=== PATIENT | male | born 1975 | race Caucasian/White ===

== ENCOUNTER 2018-08-21 01:46 | Inpatient (IN) | payer OTHER ==
[~2018-08-21] VITALS: Ht 167.6 cm; Wt 108.6 kg
[~2018-08-21 01:46] MED LIST: ASPIR LOW81 MG PO; BETIMOL5 M1 OU; CLONIDINE HYDR0.3 M1 PO; COLACE100 MG PO; FLO4 PO; HUMI SC; LANTI SQ; LIPI20 PO; NOR10T PO; RAMIPRIL2.5 MG PO; SIMBRINZA8 ML OP; TRAVATAN Z5 ML OU
[2018-08-21 02:01] VITALS: Ht 167.6 cm; Wt 108.6 kg
[2018-08-21 02:57] LABS: BASOPHIL % 0.1 % (0-2); RED CELL DISTRIBUTION WIDTH 13.8 % (11.5-14.5)
[2018-08-21 03:03] LABS: PLATELET COUNT 129 x10^3mcL (130-400)
[2018-08-21 03:15] LABS: ALBUMIN 3.6 g/dL (3.4-5.0); BILIRUBIN TOTAL 0.44 mg/dL (0.20-1.00); CALCIUM 7.8 mg/dL (8.5-10.1); CARBON DIOXIDE 26.6 mmol/L (21-32); FREE T4 0.72 ng/dL (0.76-1.46); POTASSIUM SERUM 3.9 mmol/L (3.5-5.1); TOTAL PROTEIN, SERUM 7.5 g/dL (6.4-8.2)
[2018-08-21 03:16] LABS: CREATININE SERUM 12.6 mg/dL (0.7-1.3)
[2018-08-21] MEDS ORDERED: CRESTOR10 M1 PO (03:48)
[2018-08-21] MEDS ORDERED: ZANTAC 300300 MG PO (03:49)
[2018-08-21] MEDS ORDERED: TRAZODONE50 M1 PO (03:50)
[2018-08-21] MEDS ORDERED: NATURE'S BLEND F1 MG (03:50)
[2018-08-21] MEDS ORDERED: ZOLOFT50 MG PO (03:50)
[2018-08-21] MEDS ORDERED: ATIVAN1 MG PO (03:51)
[2018-08-21] MEDS ORDERED: RENVELA800 M1 PO (03:51)
[2018-08-21] MEDS ORDERED: DICLO GEL1 EACH TP (03:52)
[2018-08-21] MEDS ORDERED: OMEPRAZOLE40 M1 PO (03:53)
[2018-08-21] MEDS ORDERED: CIALIS5 M1 PO (03:53)
[2018-08-21] MEDS ORDERED: PRIMATENE1 TAB PO (03:55)
[2018-08-21 03:59] LABS: MAGNESIUM 2.5 mg/dL (1.8-2.4); PHOSPHOROUS 6.3 mg/dL (2.5-4.9)
[2018-08-21 04:07] LABS: CHOLESTEROL/HDL RATIO 3.3
[2018-08-21 04:57] VITALS: BP 135/65
[2018-08-21 05:20] VITALS: BP 143/88
[2018-08-21 09:52] VITALS: BP 146/77
[2018-08-21 13:09] VITALS: BP 146/77
[2018-08-21] MEDS ORDERED: LEVAQUIN250 M1 PO (14:15)
== END 2018-08-21 15:20 | disposition home or self-care (01) | DRG 280 ==
LOC: ED 01:46 → MU 03:25
PROVIDERS: Emergency Medicine; Family Medicine; ADMIT Internal Medicine
DX: I21.A1 Myocardial infarction type 2 (principal); J09.X1 Influenza due to identified novel influenza A virus with pneumonia; N18.6 End stage renal disease; I12.0 Hypertensive chronic kidney disease with stage 5 chronic kidney disease or end stage renal disease; E11.22 Type 2 diabetes mellitus with diabetic chronic kidney disease; E11.65 Type 2 diabetes mellitus with hyperglycemia; E83.39 Other disorders of phosphorus metabolism; E83.41 Hypermagnesemia; Z89.432 Acquired absence of left foot; Z99.2 Dependence on renal dialysis; Z79.4 Long term (current) use of insulin; Z68.38 Body mass index [BMI] 38.0-38.9, adult; Z87.891 Personal history of nicotine dependence
CPT/HCPCS: 82962; 83880; 84439; 87804; 94150; J2060; J3490; J7620; Q0092; Q0162

== ENCOUNTER 2018-08-24 19:28 | Inpatient (IN) | payer OTHER ==
[~2018-08-24] VITALS: Ht 167.6 cm; Wt 95.3 kg
[~2018-08-24 19:28] MED LIST changes: +ATIVAN1 MG PO; +CIALIS5 M1 PO; +CRESTOR10 M1 PO; +DICLO GEL1 EACH TP; +LEVAQUIN250 M1 PO; +NATURE'S BLEND F1 MG; +OMEPRAZOLE40 M1 PO; +PRIMATENE1 TAB PO; +RENVELA800 M1 PO; +TRAZODONE50 M1 PO; +ZANTAC 300300 MG PO; +ZOLOFT50 MG PO
[2018-08-24 19:34] VITALS: Ht 167.6 cm; Wt 95.3 kg
[2018-08-24 20:38] LABS: BASOPHIL % 0.5 % (0-2); PLATELET COUNT 181 x10^3mcL (130-400)
[2018-08-24 20:44] LABS: RED CELL DISTRIBUTION WIDTH 14.9 % (11.5-14.5)
[2018-08-24 21:04] LABS: ALBUMIN 3.5 g/dL (3.4-5.0); BILIRUBIN TOTAL 0.54 mg/dL (0.20-1.00); CALCIUM 7.9 mg/dL (8.5-10.1); CARBON DIOXIDE 28.9 mmol/L (21-32); MAGNESIUM 2.8 mg/dL (1.8-2.4); PHOSPHOROUS 5.9 mg/dL (2.5-4.9); POTASSIUM SERUM 3.7 mmol/L (3.5-5.1); TOTAL PROTEIN, SERUM 7.8 g/dL (6.4-8.2)
[2018-08-24 21:06] LABS: CREATININE SERUM 14.6 mg/dL (0.7-1.3)
[2018-08-24] MEDS ORDERED: ZANTAC 300300 MG PO (22:15)
[2018-08-24] MEDS ORDERED: NEPHRO-VITE RX1 TAB PO (22:15)
[2018-08-24] MEDS ORDERED: DRISDOL50000 IU PO (22:15)
[2018-08-24] MEDS ORDERED: IMODIUM A-D2 M4 PO (22:16)
[2018-08-24] MEDS ORDERED: VELPHORO500 MG PO (22:16)
[2018-08-24] MEDS ORDERED: VELTASSA8.4 GM PO (22:17)
[2018-08-24] MEDS ORDERED: ZEGERID 40 MG1 EACH PO (22:17)
[2018-08-24] MEDS ORDERED: REGLAN10 M1 PO (22:17)
[2018-08-24] MEDS ORDERED: MP PO (22:18)
[2018-08-25 01:17] VITALS: BP 149/79
[2018-08-25 05:26] VITALS: BP 141/82
[2018-08-25 09:17] LABS: BASOPHIL % 0.4 % (0-2); PLATELET COUNT 162 x10^3mcL (130-400); RED CELL DISTRIBUTION WIDTH 14.2 % (11.5-14.5)
[2018-08-25 09:34] VITALS: BP 146/88
[2018-08-25 09:50] LABS: CALCIUM 7.9 mg/dL (8.5-10.1); CARBON DIOXIDE 25.7 mmol/L (21-32); MAGNESIUM 2.7 mg/dL (1.8-2.4); PHOSPHOROUS 6.7 mg/dL (2.5-4.9); POTASSIUM SERUM 4.1 mmol/L (3.5-5.1)
[2018-08-25 09:54] LABS: CREATININE SERUM 15.1 mg/dL (0.7-1.3)
[2018-08-25 12:06] VITALS: BP 120/60
[2018-08-25] MEDS ORDERED: LEVAQUIN250 M1 PO (15:12)
[2018-08-25 16:20] VITALS: BP 142/68
[2018-08-25 17:22] VITALS: BP 120/60
== END 2018-08-25 17:59 | disposition home or self-care (01) | DRG 193 ==
LOC: ED 19:28 → DU 21:43
PROVIDERS: Emergency Medicine; ADMIT General Practice
DX: J18.9 Pneumonia, unspecified organism (principal); I50.43 Acute on chronic combined systolic (congestive) and diastolic (congestive) heart failure; J96.01 Acute respiratory failure with hypoxia; N18.6 End stage renal disease; I13.2 Hypertensive heart and chronic kidney disease with heart failure and with stage 5 chronic kidney disease, or end stage renal disease; E87.1 Hypo-osmolality and hyponatremia; Z68.41 Body mass index [BMI] 40.0-44.9, adult; E11.22 Type 2 diabetes mellitus with diabetic chronic kidney disease; E11.65 Type 2 diabetes mellitus with hyperglycemia; E83.51 Hypocalcemia; E83.39 Other disorders of phosphorus metabolism; E83.41 Hypermagnesemia; E78.5 Hyperlipidemia, unspecified; D63.1 Anemia in chronic kidney disease; F12.10 Cannabis abuse, uncomplicated; F32.9 Major depressive disorder, single episode, unspecified; Z99.2 Dependence on renal dialysis; Z79.4 Long term (current) use of insulin; Z87.891 Personal history of nicotine dependence
CPT/HCPCS: 36600; 82962; 83880; 87804; J1956; J2060; J2270; J2405; J2543; J3370; J7040; J7050; Q0092

== ENCOUNTER 2018-10-08 20:39 | Emergency (ER) | payer OTHER ==
[~2018-10-08] VITALS: Ht 167.6 cm; Wt 117.5 kg
[~2018-10-08 20:39] MED LIST changes: +DRISDOL50000 IU PO; +IMODIUM A-D2 M4 PO; +MP PO; +NEPHRO-VITE RX1 TAB PO; +REGLAN10 M1 PO; +VELPHORO500 MG PO; +VELTASSA8.4 GM PO; +ZEGERID 40 MG1 EACH PO
[2018-10-08 20:55] VITALS: Ht 167.6 cm; Wt 117.5 kg
[2018-10-08 23:11] VITALS: BP 153/87
== END 2018-10-08 23:11 | disposition home or self-care (01) ==
LOC: ED 20:39
DX: S83.92XA Sprain of unspecified site of left knee, initial encounter (principal); I10 Essential (primary) hypertension; E78.00 Pure hypercholesterolemia, unspecified; E11.40 Type 2 diabetes mellitus with diabetic neuropathy, unspecified; Z99.2 Dependence on renal dialysis; W01.0XXA Fall on same level from slipping, tripping and stumbling without subsequent striking against object, initial encounter; Y93.89 Activity, other specified; Y92.89 Other specified places as the place of occurrence of the external cause; Y99.8 Other external cause status
CPT/HCPCS: J1885